=== PATIENT | male | born 1990 | race Caucasian/White ===

== ENCOUNTER 2018-08-30 12:21 | Emergency (ER) | payer OTHER, SELFPAY ==
[2018-08-30 12:22] VITALS: BP 117/73; PULSE 81; RESP 16; TEMP 36.1; O2SAT 99; BMI 19.5
[2018-08-30 12:53] LABS: Bacteria 0 SEEN /hpf (None Seen); Mucous, Urine 0 SEEN /hpf (<or=2+); Red Blood Cells-Urine 0 SEEN /hpf (0-5)
[2018-08-30 13:00] LABS: Color, Urine Yellow (Yellow); Glucose, Dipstick Normal (Normal); Ketone-Dipstick Negative (Negative); Leukocyte Esterase-Dipstick 25 /ul (Negative); Nitrite-Dipstick Negative (Negative); Occult Blood-Urine Negative /ul (Negative); Protein-Dipstick Negative (Negative); Specific Gravity, Urine 1.005 (1.002-1.030); Urine Bilirubin Dipstick Negative (Negative); Urine Clarity Clear (Clear); Urine Urobilinogen Normal (Normal); Urine pH 6.5 (5.0 - 8.0)
[2018-08-30 13:03] LABS: Absolute Lymphocyte Count 1.71 X10^3/ul (0.83-4.51); Absolute Neutrophil Count 4.4 X10^3/uL (2.0-7.7); Basophil# 0.02 X10^3/uL; Basophil% 0.3 % (0-1); Eosinophil# 0.07 X10^3/uL; Eosinophils% 1.1 % (0-5); Hematocrit 41.6 % (40-54); Hemoglobin 13.8 g/dl (13.0-16.5); Lymphocyte # 1.71 X10^3/ul (4.0); Lymphocyte % 25.8 % (19-41); Mean Corp Hgb Conc 33.2 g/gl (32-36); Mean Corpuscular Hgb 31.9 pg (27.0-32.0); Mean Corpuscular Volume 96.1 fL (80-94); Mean Platelet Vol. 10.4 fl (6.2-12.0); Monocyte# 0.43 X10^3/uL; Monocyte% 6.5 % (0-10); Neutrophil # 4.39 X10^3/uL (2.7-7.7); Neutrophil % 66.1 % (47-70); Platelet Count 237 K/mm3 (150-450); RBC Distribution Width CV 12.4 % (11.6-14.6); RBC Distribution Width SD 43.4 fl (35.1-43.9); Red Blood Count 4.33 M/mm3 (4.6-6.2); White Blood Count 6.6 K/mm3 (4.4-11.0)
[2018-08-30 13:05] LABS: POSITIVE COUNT NO; POSITIVE DIFFERENTIAL NO; POSITIVE MORPHOLOGY NO
[2018-08-30 13:15] LABS: Anion Gap 6 (5-15); BUN 11 mg/dL (7-18); BUN/Creat Ratio 15.4 RATIO (10-20); Calcium,Total 8.6 mg/dL (8.5-10.1); Chloride 108 mmol/L (98-107); Creatinine, Serum 0.72 mg/dL (0.70-1.30); EST Glomerular Filtration Rate 139 mL/min (>60); Est Glom Filt Rate - Afr Amer 168 mL/min (>60); Estimated Creatinine Clearance 133.28 ml/min; Glucose 58 mg/dL (74-106); Potassium 4.3 mmol/L (3.5-5.1); Sodium Level 142 mmol/L (136-145)
--- NOTE | 2018-08-30 13:28 | ED.DCSUM_ITS ---
- ER Visit Summary Date of Service: 08/30/18 Chief Complaint: Abdominal pain History of Present Illness: The patient is a 28 M past medical history of methamphetamine abuse. No prior abdominal surgeries. States for about 3-4 weeks he has had abdominal pain. 1-2 weeks ago he had nausea, vomiting and diarrhea but that has since resolved. Currently no fever. No dysuria. No trauma. Currently he is pain-free. Patient was seen last week in urgent care was placed on Bentyl and ranitidine. They told him that he was not feeling better to get his appendix checked. Physical Examination: Well-appearing young male. No acute distress. Vital signs are stable and afebrile. HEENT exam unremarkable. Neck nontender. No lymphadenopathy. Lungs clear to auscultation bilaterally. Heart regular rhythm no murmur. Abdomen is soft and nontender. Sounds. No peritoneal signs. Her urine helical take this is another stroke alert for an hour ago with no hernias. No masses. Normal bowel sounds. Both the right upper and right lower quadrants are unremarkable. Moving all 4 extremities. Neurovascular intact. Neurologically awake and alert no focal motor deficits. Back nontender. Skin normal. Test Results: CBC normal with a hemoglobin of 13. Electrolytes normal. Normal gap and creatinine. Liver enzymes normal. UA normal Emergency Department Course and Treatment: Repeat exam patient doing well at 1458. Abdomen benign and nontender. Treatment Plan: Continue his current medications and follow-up with his primary care physician. Disposition: Discharge Impression: Abdominal pain of uncertain etiology resolved This note was generated with [employer] dictation software. It may contain incorrect words, spelling, and punctuation that were not noted in review of the chart prior to signing ED Disposition - Plan for ED Patient: Chief Complaint: Abd Pain Referrals: Care Physician,No Primary [Primary Care Provider] -
[2018-08-30 13:55] LABS: Squamous Epithelial Cells - UA 0-5 SEEN /hpf (0-5); White Blood Cells 0-5 SEEN /hpf (0-5)
[2018-08-30 14:17] LABS: AST(SGOT) 17 U/L (15-37); Alanine Aminotransfer ALT/SGPT 22 U/L (16-61); Albumin, Serum 3.9 g/dL (3.2-5.0); Alkaline Phosphatase 76 U/L (45-117); Globulin 3.6 g/dL (2.2-4.2); Protein, Total 7.5 g/dL (6.4-8.2)
--- NOTE | 2018-08-30 14:59 | ED.DEP ---
ED Disposition - Plan for ED Patient: Disposition: Home or Assisted Living Chief Complaint: Abd Pain Instructions: ED Abdominal Pain Unkn Cause Referrals: Albino Gutierrez MD [STAFF PHYSICIAN] - Additional Instructions: Continue your current medications Call follow-up with primary care physician if not improving.
[2018-08-30 15:03] VITALS: BP 110/76; PULSE 52; RESP 16; O2SAT 98
--- OUTSIDE RECORDS SUMMARY | 2018-10-12 11:08 | XMS RPT_ITS ---
:1990 Author Organization [facility] Care Team Providers Name Role Phone Primay Care Physicia, No Primary Care Unavailable Sha Townsend Unavailable PROBLEMS PROBLEMS No Problem Records FoundPROCEDURES PROCEDURES No Procedure Records FoundRESULTS RESULTS DISCHARGE INSTRUCTION Observed: 08/30/2018 Status: F Source: LENORAH 5:03 PM [facility] REPOSITORY [facility] Medical Records Department [address] [place] [id number] Discharge Instruction 08/30/18 1459 MR#: [id number] Acct: [id number] Name: HUGO LOCKE Rep #: [id number] : 1990 28 From: Sha Townsend MD PCP: Care Physician, No Primary Status: DEP ER ED Disposition - Plan for ED Patient: Disposition: Home or Assisted Living Chief Complaint: Abd Pain Instructions: ED Abdominal Pain Unkn Cause Referrals: Albino Gutierrez MD [STAFF PHYSICIAN] - Additional Instructions: Continue your current medications Call follow-up with primary care physician if not improving. What to do if you have Problems For any increased pain, shortness of breath, bleeding, nausea or vomiting, chest pain, or any unexpected problems, contact your Primary Care Provider. Call [facility] ([phone]) or report to the closest Emergency Room. Call 911 if necessary. 08/30/18 6560 <Electronically signed by Sha Townsend MD> Date Sha Townsend MD Cosigner Signature (If Indicated): Date CC: No Primary Care Physician EMERGENCY DEPARTMENT Observed: 08/30/2018 Status: F Source: LENORAH SUMMARY 5:03 PM [facility] REPOSITORY [facility] Medical Records Department [address] [place] [address] Emergency Department Summary 08/30/18 1323 MR#: [id number] Acct: [id number] Name: HUGO LOCKE Rep #: [id number] : 1990 28 From: Sha Townsend MD PCP: Care Physician, No Primary Status: DEP ER - ER Visit Summary Date of Service: 08/30/18 Chief Complaint: Abdominal pain History of Present Illness: The patient is a 28 M past medical history of methamphetamine abuse. No prior abdominal surgeries. States for about 3- 4 weeks he has had abdominal pain. 1-2 weeks ago he had nausea, vomiting and diarrhea but that has since resolved. Currently no fever. No dysuria. No trauma. Currently he is pain-free. Patient was seen last week in urgent care was placed on Bentyl and ranitidine. They told him that he was not feeling better to get his appendix checked. Physical Examination: Well-appearing young male. No acute distress. Vital signs are stable and afebrile. HEENT exam unremarkable. Neck nontender. No lymphadenopathy. Lungs clear to auscultation bilaterally. Heart regular rhythm no murmur. Abdomen is soft and nontender. Sounds. No peritoneal signs. Her urine helical take this is another stroke alert for an hour ago with no hernias. No masses. Normal bowel sounds. Both the right upper and right lower quadrants are unremarkable. Moving all 4 extremities. Neurovascular intact. Neurologically awake and alert no focal motor deficits. Back nontender. Skin normal. Test Results: CBC normal with a hemoglobin of 13. Electrolytes normal. Normal gap and creatinine. Liver enzymes normal. UA normal Emergency Department Course and Treatment: Repeat exam patient doing well at 1458. Abdomen benign and nontender. Treatment Plan: Continue his current medications and follow- up with his primary care physician. Disposition: Discharge Impression: Abdominal pain of uncertain etiology resolved This note was generated with Tunasp[employer] dictation software. It may contain incorrect words, spelling, and punctuation that were not noted in review of the chart prior to signing ED Disposition - Plan for ED Patient: Chief Complaint: Abd Pain Referrals: Care Physician,No Primary [Primary Care Provider] - What to do if you have Problems For any increased pain, shortness of breath, bleeding, nausea or vomiting, chest pain, or any unexpected problems, contact your Primary Care Provider. Call [facility] ([phone]) or report to the closest Emergency Room. Call 911 if necessary. 08/30/18 1703 <Electronically signed by Sha Townsend MD> Date Sha Townsend MD Cosigner Signature (If Indicated): Date CC: No Primary Care Physician CBC W/DIFF, AUTOMATED Collected: 08/30/2018 Status: F Source: MATHEUS 12:43 PM [facility] REPOSITORY TYPE CODE TESTS RESULT OUT OF RANGE REFERENCE UNITS LAB L100.1000 4.4-11.0 K/mm3 Normal WBC 6.6 LAB L100.1200 4.6-6.2 M/mm3 Low RBC 4.33 LAB L100.1300 13.0-16.5 g/dl Normal HGB 13.8 LAB L100.1400 40-54 % Normal HCT 41.6 LAB L100.1500 80-94 fL High MCV 96.1 LAB L100.1600 27.0-32.0 pg Normal MCH 31.9 LAB L100.1700 32-36 g/gl Normal MCHC 33.2 LAB L100.1810 11.6-14.6 % Normal RDW CV 12.4 LAB L100.1820 35.1-43.9 fl Normal RDW SD 43.4 LAB L100.1900 150-450 K/mm3 Normal PLT 237 LAB L100.2000 6.2-12.0 fl Normal MPV 10.4 LAB L100.2100 47-70 % Normal NEUT% 66.1 LAB L100.2200 19-41 % Normal LY% 25.8 LAB L100.2300 0-10 % Normal MONO% 6.5 LAB L100.2400 0-5 % Normal EO% 1.1 LAB L100.2500 0-1 % Normal BASO% 0.3 LAB L100.2550 0.0-0.9 % Normal IM GRAN % 0.200 Result Comment: IG% - Immature Granulocytes (promyelocytes, myelocytes and metamyelocytes) > 1% indicates that a LEFT SHIFT is Present. LAB L100.2620 2.0-7.7 X10 3/uL Normal Absolute Neut 4.4 LAB L100.2720 0.83-4.51 X10 3/ul Normal Absolute Lymph 1.71 Performed By: #### L100.0100 #### [facility] [address] [place], [place], [address] BASIC METABOLIC Collected: 08/30/2018 Status: F Source: LENORAH PROFILE (BMP) 12:43 PM [facility] REPOSITORY TYPE CODE TESTS RESULT OUT OF RANGE REFERENCE UNITS LAB L501.0100 74-106 mg/dL Low GLU 58 Result Comment: Please note revised GLUCOSE reference range effective 2017. LAB L501.1000 7-18 mg/dL Normal BUN 11 LAB L501.1100 0.70-1.30 mg/dL Normal CREAT,SERUM 0.72 Result Comment: The validity of the calculated GFR AND GFRAA in patients over 70 years has not been determined. Clinical correlation is essential. LAB L501.1110 >60 mL/min Normal EST GFR 139 Result Comment: Non- GFR Calc LAB L501.1115 >60 mL/min Normal EST GFR - AA 168 Result Comment: GFR Calc LAB L501.1255 ml/min Normal Estimated CRCL 133.28 LAB L501.1300 10-20 RATIO BUN/CRE Normal 15.4 LAB L501.2200 8.5-10 mg/dL .1 CA Normal 8.6 LAB L501.5300 136-14 mmol/L 5 NA Normal 142 LAB L501.5600 3.5-5. mmol/L 1 K Normal 4.3 LAB L501.5900 98-107 mmol/L High CL 108 LAB L501.6100 21.0-3 mmol/L 2.0 CO2 Normal 28.0 LAB L501.6200 5-15 GAP Normal 6 Performed By: #### L500.2500 #### [facility] [address] [place], [place], [id number] LIVER PROFILE Collected: 08/30/2018 Status: F Source: LENORAH 12:43 PM [facility] REPOSITORY TYPE CODE TESTS RESULT OUT OF RANGE REFERENCE UNITS LAB L501.1500 6.4-8.2 g/dL Normal T PROT 7.5 LAB L501.1800 3.2-5.0 g/dL Normal ALB 3.9 LAB L501.1950 2.2-4.2 g/dL Normal GLOB 3.6 LAB L501.4100 15-37 U/L Normal AST 17 LAB L501.4305 45-117 U/L Normal ALK P 76 LAB L501.4405 16-61 U/L Normal ALT 22 LAB L501.4600 0.20-1.00 mg/dL Normal T BILI 0.20 LAB L501.4700 0.00-0.30 mg/dL Normal D BILI 0.10 Performed By: #### L500.3406 #### [facility] [address] [place], [place], [address] URINALYSIS, COMPLETE Collected: 08/30/2018 Status: F Source: LENORAH 12:40 PM [facility] REPOSITORY Order Comment: Order Date: 08/30/18 How was Urine Obtained? EMERGENCY TELECOMMUNICATIONS DISPATCHER TO SPECIFY TYPE CODE TESTS RESULT OUT OF RANGE REFERENCE UNITS LAB L400.3000 Yellow COLOR Normal Yellow LAB L400.3050 Clear Normal CLARITY Clear LAB L400.3200 Normal mg/dl Normal GLUCOSE, UR Normal LAB L400.3300 Negative mg/dL Normal BILIRUBIN URINE Negative LAB L400.3400 Negative mg/dl Normal KETONE UR Negative LAB L400.3465 1.002-1.030 Normal SP.GR. DIPSTX 1.005 LAB L400.3550 5.0 - 8.0 pH UR Normal 6.5 LAB L400.3600 Negative mg/dl PROT Normal DIPSTX Negative LAB L400.3700 Normal mg/dl Normal UROBILI Normal LAB L400.3750 Negative Normal NITRITE UR Negative LAB L400.3780 Negative /ul Normal OCCULT BLOOD-UR Negative LAB L400.3800 Negative /ul High LEUK 25 ESTERASE LAB L400.4050 0-5 /hpf WBC Normal 0-5 SEEN LAB L400.4100 0-5 /hpf 0 Normal RBC-UA SEEN LAB L400.4150 0-5 /hpf SQUAM Normal EPI 0-5 SEEN LAB L400.4300 None Seen /hpf 0 Normal BACTERIA SEEN LAB L400.4350 <or=2+ /hpf 0 Normal MUCUS, URINE SEEN Performed By: #### L400.0001 #### [facility] [address] [place], [address] PROGRESS Observed: 08/24/2018 Status: COMPLETED Source: VAUGHN 1:29 PM [facility] REPOSITORY HNO ID: [id number] Author: Venkata Dominguez) Janet Service: (none) Author Type: Physician Farm [employer] Engine Mechanic Type: Progress Notes Filed: 08/24/2018 1:33 PM Note Text: Subjective HPI Patient presents with cough congestion and nausea and diarrhea over the past 5-6 days. He states Pepto-Bismol has been helping with his upset stomach and diarrhea. He feels like he is having a little acid reflux as well. He states his cough is improving. His diarrhea was only 2 bouts yesterday. No blood in his stool. He's had some abdominal cramping off and on as well. Denies any recent antibiotics. He does work on a chicken farm. Review of Systems Constitutional: Negative. Negative for chills and fever. HENT: Positive for congestion. Respiratory: Positive for cough. Gastrointestinal: Positive for abdominal pain, diarrhea, heartburn, nausea and vomiting. Negative for blood in stool, constipation and melena. Genitourinary: Negative. Musculoskeletal: Negative. All other systems reviewed and are negative. 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 Disp: 60 tablet Rfl: 0 dicyclomine (BENTYL) 10 mg capsule Take 1 capsule by mouth before meals and at bedtime. Disp: 12 capsule Rfl: 0 No current facility-administered medications for this visit. PAST SURGICAL HISTORY Procedure Laterality Date - NONE FAMILY HISTORY Problem Relation Age of Onset - other (Heart Problems [Other]) Unknown Maternal side - Cancer Unknown Maternal AND Paternal sides - Diabetes Unknown Maternal side Social History Substance Use Topics - Smoking status: Never Smoker - Smokeless tobacco: Current User Types: Snuff - Alcohol use No BP 130/84 Pulse 80 Temp 37.1 ?C (98.7 ?F) (Tympanic) Resp 16 Wt 62.1 kg (136 lb 12.8 oz) SpO2 97% Objective Physical Exam Constitutional: He is oriented to person, place, and time and well-developed, well-nourished, and in no distress. HENT: Head: Normocephalic and atraumatic. Right Ear: Tympanic membrane, external ear and ear canal normal. Left Ear: Tympanic membrane, external ear and ear canal normal. Nose: Mucosal edema and rhinorrhea present. Mouth/Throat: Uvula is midline, oropharynx is clear and moist and mucous membranes are normal. Neck: Normal range of motion. Neck supple. Cardiovascular: Normal rate, regular rhythm and normal heart sounds. Pulmonary/Chest: Effort normal and breath sounds normal. Abdominal: Soft. Bowel sounds are normal. Patient has mild periumbilical abdominal pain on palpation. There is no rebound or guarding. No right lower quadrant tenderness on palpation. No epigastric or right or left upper quadrant tenderness on palpation. Bowel sounds are normal. Neurological: He is alert and oriented to person, place, and time. Skin: Skin is warm and dry. Psychiatric: Affect and judgment normal. Nursing note and vitals reviewed. ASSESSMENT/PLAN: 1. Viral illness - ICD9: 079.99, ICD10: B34.9 - Discussed viral etiology and rationale for treatment. - Symptomatic treatment with prn analgesia - Supportive care with fluids and rest - abdomen is benign here. I will give him zantac and bentyl. Discussed if he has worsening abdominal pain, blood in stool, fever or other worsening symptoms go to ED. Pt agreeable. CEE Velázquez Observed: 08/24/2018 Status: COMPLETED Source: VAUGHN 10:45 AM [facility] [place] REPOSITORY Office Visit ([facility]) KEVIN LOCKE ([id number]) 1990 M Date Time Provider Department 08/24/18 10:45 AM VENKATA DING) [facility] During your visit today, we recorded the following information about you: Temperature Pulse Respiration Blood pressure 98.7 degrees 80/minute 16/minute 130/84 Weight 62.1 kg Venkata Ding PA-C 08/24/2018 1:33 PM Signed Subjective HPI Patient presents with cough congestion and nausea and diarrhea over the past 5-6 days. He states Pepto-Bismol has been helping with his upset stomach and diarrhea. He feels like he is having a little acid reflux as well. He states his cough is improving. His diarrhea was only 2 bouts yesterday. No blood in his stool. He's had some abdominal cramping off and on as well. Denies any recent antibiotics. He does work on a chicken farm. Review of Systems Constitutional: Negative. Negative for chills and fever. HENT: Positive for congestion. Respiratory: Positive for cough. Gastrointestinal: Positive for abdominal pain, diarrhea, heartburn, nausea and vomiting. Negative for blood in stool, constipation and melena. Genitourinary: Negative. Musculoskeletal: Negative. All other systems reviewed and are negative. PAST MEDICAL HISTORY Diagnosis Date - Attention deficit disorder with hyperactivity(314.01) - PMH - PAST MEDICAL HISTORY OF [id number] failed color vision Current Outpatient Prescriptions: ranitidine (ZANTAC) 150 mg tablet Take 1 tablet by mouth twice daily. Disp: 60 tablet Rfl: 0 dicyclomine (BENTYL) 10 mg capsule Take 1 capsule by mouth before meals and at bedtime. Disp: 12 capsule Rfl: 0 No current facility-administered medications for this visit. PAST SURGICAL HISTORY Procedure Laterality Date - NONE FAMILY HISTORY Problem Relation Age of Onset - other (Heart Problems [Other]) Unknown Maternal side - Cancer Unknown Maternal AND Paternal sides - Diabetes Unknown Maternal side Social History Substance Use Topics - Smoking status: Never Smoker - Smokeless tobacco: Current User Types: Snuff - Alcohol use No BP 130/84 Pulse 80 Temp 37.1 ?C (98.7 ?F) (Tympanic) Resp 16 Wt 62.1 kg (136 lb 12.8 oz) SpO2 97% Objective Physical Exam Constitutional: He is oriented to person, place, and time and well-developed, well-nourished, and in no distress. HENT: Head: Normocephalic and atraumatic. Right Ear: Tympanic membrane, external ear and ear canal normal. Left Ear: Tympanic membrane, external ear and ear canal normal. Nose: Mucosal edema and rhinorrhea present. Mouth/Throat: Uvula is midline, oropharynx is clear and moist and mucous membranes are normal. Neck: Normal range of motion. Neck supple. Cardiovascular: Normal rate, regular rhythm and normal heart sounds. Pulmonary/Chest: Effort normal and breath sounds normal. Abdominal: Soft. Bowel sounds are normal. Patient has mild periumbilical abdominal pain on palpation. There is no rebound or guarding. No right lower quadrant tenderness on palpation. No epigastric or right or left upper quadrant tenderness on palpation. Bowel sounds are normal. Neurological: He is alert and oriented to person, place, and time. Skin: Skin is warm and dry. Psychiatric: Affect and judgment normal. Nursing note and vitals reviewed. ASSESSMENT/PLAN: 1. Viral illness - ICD9: 079.99, ICD10: B34.9 - Discussed viral etiology and rationale for treatment. - Symptomatic treatment with prn analgesia - Supportive care with fluids and rest - abdomen is benign here. I will give him zantac and bentyl. Discussed if he has worsening abdominal pain, blood in stool, fever or other worsening symptoms go to ED. Pt agreeable. Venkata Ding PA-C Referring Provider: SELF [200] Allergies As of Date: 08/24/2018 (No Known Allergies) Date Reviewed: 08/24/2018 Reviewed by: Araceli Roe LPN - Fully Assessed Reason for Visit: cough, congestion, vomiting and diarrhea [Other] Cmt: x 5 days Primary Visit Diagnosis:Viral illness [B34.9] Order(s):ranitidine (ZANTAC) 150 mg tabletTake 1 tablet by mouth twice daily.Disp: 60 tabletRfl: 0 dicyclomine (BENTYL) 10 mg capsuleTake 1 capsule by mouth before meals and at bedtime.Disp: 12 capsuleRfl: 0 Prescriptions as of 08/24/2018 Sig: RANITIDINE 150 MG TABLET Take 1 tablet by mouth twice * DICYCLOMINE 10 MG CAPSULE Take 1 capsule by mouth befor* Problem List As Of Date 08/24/2018 Noted Resolved ATTN DEFICIT NONHYPERACT [F98.8] INVALID FOR* ATTN DEFICIT W HYPERACT [F90.9] 08/25/2006 ONYCHIA OF TOE [L03.039] INVALID FOR* CELLULITIS OF FOOT [L03.119, L02.619] INVALID FOR* Prescriptions ordered this encounter Disp Refills Start End RANITIDINE 150 MG TABLET 60 t* 0 08/24/2018 Route: ORAL Sig: Take 1 tablet by mouth twice daily. DICYCLOMINE 10 MG CAPSULE 12 c* 0 08/24/2018 Route: ORAL Sig: Take 1 capsule by mouth before meals and at bedtime. Letter Text [facility] SILVIA Weiss [address], [place] [address] 08/24/2018 TO WHOM IT MAY CONCERN: This is to confirm that Kevin Locke had an appointment and was seen at the [facility] in the Department of Urgent Care by SILVIA Weiss on 08/24/2018 and may return to work on 08/25/2018. Sincerely yours, SILVIA Weiss Encounter Status:Closed by VENKATA DING PA-C on 08/24/18 PROGRESS Observed: 09/24/2017 Status: COMPLETED Source: VAUGHN 9:26 AM [facility] [place] REPOSITORY O ID: [id number] Author: Emilie Pabon (Pa) Service: (none) Author Type: Physician [employer] Engine Mechanic Type: Progress Notes Filed: 10/05/2017 10:23 AM Note Text: HPI 27 yo WM presents with left ear pain and swollen neck glands for 3-4 days. He tells me that he has had fevers during the week. Last evening he states his temp. Was 103. He is using Nyquil and NSAIDs. 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 Review of Systems Constitutional: Positive for chills, fever and malaise/fatigue. Negative for diaphoresis. HENT: Positive for congestion and ear pain. Negative for ear discharge. Respiratory: Positive for cough. Negative for sputum production, shortness of breath and wheezing. Cardiovascular: Negative for chest pain and palpitations. Gastrointestinal: Negative for abdominal pain, nausea and vomiting. All other systems reviewed and are negative. PAST MEDICAL HISTORY Diagnosis Date - Attention deficit disorder with hyperactivity(314.01) - PMH - PAST MEDICAL HISTORY OF [id number] failed color vision PAST SURGICAL HISTORY Procedure Laterality Date - NONE ALLERGIES Review of patient's allergies indicates no known allergies. MEDICATIONS No prescriptions on file. FAMILY HISTORY Problem Relation Age of Onset - Heart Problems [Other] [OTHER] Maternal side - Cancer Maternal AND Paternal sides - Diabetes Maternal side Social History Substance Use Topics - Smoking status: Never Smoker - Smokeless tobacco: Current User Types: Snuff - Alcohol use No Physical Exam Constitutional: He is oriented to person, place, and time and well-developed, well-nourished, and in no distress. HENT: Head: Normocephalic. Nose: Nose normal. Mouth/Throat: Oropharynx is clear and moist. No oropharyngeal exudate. Right TM + erythematous Left TM + erythematous with moderate effusion. Neck: No JVD present. Cardiovascular: Normal rate, regular rhythm and normal heart sounds. Pulmonary/Chest: Effort normal and breath sounds normal. No stridor. Abdominal: Soft. Bowel sounds are normal. Lymphadenopathy: He has cervical adenopathy. Neurological: He is alert and oriented to person, place, and time. Skin: Skin is warm and dry. Psychiatric: Affect normal. Blood pressure 116/70, pulse 80, temperature 37.6 ?C (99.7 ?F), temperature source Tympanic, resp. rate 18, weight 70.3 kg (155 lb). CNOV Observed: 09/24/2017 Status: COMPLETED Source: VAUGHN 8:45 AM [facility] REPOSITORY Office Visit [facility] KEVIN LOCKE ([id number]) 1990 M Date Time Provider Department 09/24/17 8:45 AM EMILIE PABON) [facility] During your visit today, we recorded the following information about you: Temperature Pulse Respiration Blood pressure 99.7 degrees 80/minute 18/minute 116/70 Weight 70.3 kg Emilie Pabon PA-C 10/05/2017 10:23 AM Signed HPI 27 yo WM presents with left ear pain and swollen neck glands for 3-4 days. He tells me that he has had fevers during the week. Last evening he states his temp. Was ANDquot;103.ANDquot; He is using Nyquil and NSAIDs. 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 Review of Systems Constitutional: Positive for chills, fever and malaise/fatigue. Negative for diaphoresis. HENT: Positive for congestion and ear pain. Negative for ear discharge. Respiratory: Positive for cough. Negative for sputum production, shortness of breath and wheezing. Cardiovascular: Negative for chest pain and palpitations. Gastrointestinal: Negative for abdominal pain, nausea and vomiting. All other systems reviewed and are negative. PAST MEDICAL HISTORY Diagnosis Date - Attention deficit disorder with hyperactivity(314.01) - PMH - PAST MEDICAL HISTORY OF [id number] failed color vision PAST SURGICAL HISTORY Procedure Laterality Date - NONE ALLERGIES Review of patient's allergies indicates no known allergies. MEDICATIONS No prescriptions on file. FAMILY HISTORY Problem Relation Age of Onset - Heart Problems [Other] [OTHER] Maternal side - Cancer Maternal ANDamp; Paternal sides - Diabetes Maternal side Social History Substance Use Topics - Smoking status: Never Smoker - Smokeless tobacco: Current User Types: Snuff - Alcohol use No Physical Exam Constitutional: He is oriented to person, place, and time and well-developed, well-nourished, and in no distress. HENT: Head: Normocephalic. Nose: Nose normal. Mouth/Throat: Oropharynx is clear and moist. No oropharyngeal exudate. Right TM + erythematous Left TM + erythematous with moderate effusion. Neck: No JVD present. Cardiovascular: Normal rate, regular rhythm and normal heart sounds. Pulmonary/Chest: Effort normal and breath sounds normal. No stridor. Abdominal: Soft. Bowel sounds are normal. Lymphadenopathy: He has cervical adenopathy. Neurological: He is alert and oriented to person, place, and time. Skin: Skin is warm and dry. Psychiatric: Affect normal. Blood pressure 116/70, pulse 80, temperature 37.6 ?C (99.7 ?F), temperature source Tympanic, resp. rate 18, weight 70.3 kg (155 lb). Referring Provider: SELF [200] Allergies As of Date: 09/24/2017 (No Known Allergies) Date Reviewed: 09/24/2017 Reviewed by: Noemi Lake Ma - Fully Assessed Reason for Visit: Diarrhea [35] Cmt: vomiting, sore throat and fever x 3 days Primary Visit Diagnosis:Bilateral acute serous otitis media, recurrence not specified [H65.03] Order(s):[] azithromycin (ZITHROMAX Z-RIOS) 250 mg tabletTake 2 tablets day one, then, 1 tablet daily until gone.Disp: 1 PackageRfl: 0 Prescriptions as of 09/24/2017 Sig: AZITHROMYCIN 250 MG TABLET Take 2 tablets day one, then,* Problem List As Of Date 09/24/2017 Noted Resolved ATTN DEFICIT NONHYPERACT [F98.8] INVALID FOR* ATTN DEFICIT W HYPERACT [F90.9] 08/25/2006 ONYCHIA OF TOE [L03.039] INVALID FOR* CELLULITIS OF FOOT [L03.119, L02.619] INVALID FOR* Prescriptions ordered this encounter Disp Refills Start End AZITHROMYCIN 250 MG TABLET 1 Pa* 0 09/24/2017 09/29/2017 Sig: Take 2 tablets day one, then, 1 tablet daily until gone. Encounter Status:Closed by RADHA MIKE, EMILIE on 10/05/17 ALLERGIES ALLERGIES DATE TYPE / CODE NAME / CODE REACTION SEVERITY SOURCE 08/30/2018 Drug No Known Unknown [facility] Allergy/416 Allergies/[id number] Hospital [id number](SNOM 0388(RXNORM) Repository ED CT) Drug NO KNOWN [facility] Class/31563 ALLERGIES Main [place] 1003(SNOMED Repository CT) ENCOUNTERS ENCOUNTERS ADMIT/DISCHARGE ACCOUNT ADMITTING ENCOUNTER LOCATION SOURCE NUMBER CLASS 08/30/2018/08/30/20 [id number] Emergency [address] ing:ED Repository 08/24/2018/08/25/20 [id number] Ambulatory [address] Repository 09/24/2017/09/24/20 [id number] Ambulatory [address] Repository PAYERS PAYERS ENCOUNTER GUARANTOR PAYER SUBSCRIBER SOURCE 08/30/2018 HUGO Michel [id number] Insurance:VIRIDIANALTCAREPol STERLINGENDOB: [facility] Number: [id number], [place] [id number] Repository [id number]: [phone]) Date:1590-31-50LR [phone] () [address], [place] [phone]: 08/30/2018 Secondary NOT GIVENEVELIO Michel Insurance:SELF PAY [facility] Number: Effective Repository Date:2018-08-30
== END 2018-08-30 15:04 | disposition home or self-care (01) ==
PROVIDERS: Emergency Provider Emergency Medicine
DX: R10.9 Unspecified abdominal pain (principal); Z72.0 Tobacco use
CPT/HCPCS: 80048; 80076; 81001; 85025; 99282

== ENCOUNTER 2024-06-26 18:25 | Emergency (ER) | payer MEDICAID, SELFPAY ==
[2024-06-26 18:25] VITALS: BP 120/81; PULSE 81; RESP 16; TEMP 36.3; O2SAT 98; BMI 20.7
--- NOTE | 2024-06-26 18:27 | RAD_ITS ---
EXAM: XR RIGHT FOOT COMPLETE, 3 OR MORE VIEWS CLINICAL INDICATION: INJURY pain. TECHNIQUE: Frontal, lateral and oblique views of the right foot. COMPARISON: No relevant prior studies available. 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 No acute fracture. No sclerotic or destructive changes observed. SOFT TISSUES: No significant abnormality. No soft tissue swelling or gas. No radiopaque foreign body. RAD/Foot min 3 Views IMPRESSION: Degenerative change. No acute osseous findings. Electronically Signed: Jaron Santiago DO at 18:49 EDT ,
--- NOTE | 2024-06-26 19:55 | ED.RN ---
Pt states he's leaving, I'm not waiting another minute, ambulated out of dept without any difficulty.
== END 2024-06-26 19:50 | disposition left against medical advice (07) ==
LOC: ED 20:25
DX: Z53.21 Procedure and treatment not carried out due to patient leaving prior to being seen by health care provider (principal)
CPT/HCPCS: 73630